=== PATIENT | male | born 1970 | race Caucasian/White ===

== ENCOUNTER 2017-03-04 07:11 | Outpatient (CLI) | payer OTHER | END 2017-03-04 07:12 | disposition home or self-care (01) | DX: R51 Headache (principal); M43.6 Torticollis ==

== ENCOUNTER 2020-02-04 06:48 | Outpatient (CLI) | payer OTHER | END 2020-02-04 06:49 | disposition EMS.NT | LOC: EMS 06:48 | PROVIDERS: ATTEND Surgery | DX: M54.9 Dorsalgia, unspecified (principal); R20.2 Paresthesia of skin ==

== ENCOUNTER 2020-02-04 07:37 | Emergency (ER) | payer OTHER ==
[2020-02-04] MEDS ORDERED: KETOROLAC 60 MG/2 ML VIAL IM STA (08:21)
[2020-02-04] MEDS ORDERED: CYCLOBENZAPRINE 10 MG TABLET PO STA (08:21)
--- NOTE | 2020-02-04 08:31 | ED Physician Documentation ---
PD HPI BACK PAIN - Stated complaint Stated Complaint: BACK PX - Chief complaint Chief Complaint: Back Pain - History obtained from History obtained from: Patient - History of Present Illness Timing - onset: Today Timing - duration: Hours (2) Timing - details: Abrupt onset Pain level max: 8 Pain level now: 6 Location: Upper Quality: Pain, Spasm, Similar to prior episodes Associated symptoms: No: Fever, Weakness, Numbness, Incontinent of urine, Unable to urinate, Hematuria, Incontinent of stool Improves with: Rest Worsened by: Movement Contributing factors: No: Lifting, Twisting, Trauma, Anticoagulated, Cancer, IVDA, Out of meds - Additional information Additional information: 49-year-old male states he has a long history of back problems. He states that today in the shower he twisted to the left and felt his back seized up. Worse with movement and better with rest. No chest pain. No difficulty breathing. No loss of bowel or bladder control. He states he did have some tingling to the hands. Review of Systems Ten Systems: 10 systems reviewed and negative Constitutional: denies: Fever, Chills Ears: denies: Ear pain Nose: denies: Rhinorrhea / runny nose, Congestion Respiratory: denies: Cough GI: denies: Abdominal Pain, Vomiting, Diarrhea Skin: denies: Rash Musculoskeletal: denies: Neck pain Neurologic: denies: Focal weakness, Numbness, Headache PD PAST MEDICAL HISTORY - Past Medical History Past Medical History: Yes Musculoskeletal: Chronic back pain - Past Surgical History Past Surgical History: No - Present Medications Home Medications: Ambulatory Orders Medication Instructions Recorded Confirmed Cyclobenzaprine [Flexeril] 10 mg PO TID PRN #20 tablet 02/04/20 Hydrocodone/Acetaminophen 1 - 2 each PO Q6H PRN #14 tablet 02/04/20 [Hydrocodon-Acetaminophen 5-325] Ibuprofen [Motrin] 800 mg PO Q8H PRN #30 tablet 02/04/20 - Allergies Allergies/Adverse Reactions: Allergies Allergy/AdvReac Type Severity Reaction Status Date / Time No Known Drug Allergies Allergy Verified 02/04/20 07:49 - Living Situation Living Arrangement: reports: At home - Social History Does the pt have substance abuse?: No - Family History Family history: reports: Non contributory PD ED PE NORMAL - Vitals Vital signs reviewed: Yes - General General: Alert and oriented X 3, No acute distress, Well developed/nourished - HEENT HEENT: Atraumatic, Moist mucous membranes - Neck Neck: Supple, no meningeal sign, No bony TTP - Cardiac Cardiac: RRR, Strong equal pulses - Respiratory Respiratory: No respiratory distress, Clear bilaterally - Abdomen Abdomen: Soft, Non tender, Non distended - Back Back: Other (Tender to palpation midline approximately T5-6 Paraspinal spasm present bilaterally near the same area. Pulses are equal bilaterally.) - Derm Derm: Warm and dry - Extremities Extremities: Other (Normal bilateral lower extremity patellar and ankle jerk reflexes. Normal great toe extension bilaterally. no saddle anesthesia) - Neuro Neuro: Alert and oriented X 3, No motor deficit, No sensory deficit - Psych Psych: Normal mood, Normal affect Results - Vitals Vitals: Vital Signs - 24 hr 02/04/20 02/04/20 07:46 09:07 Temperature 36.8 C 36.6 C Heart Rate 65 68 Respiratory 16 16 Rate Blood Pressure 118/98 H 122/74 O2 Saturation 100 100 Oxygen O2 Source Room air - Rads (name of study) Thoracic spine x-ray Radiology: Prelim report reviewed, EMP read contemporaneously, See rad report (normal) PD MEDICAL DECISION MAKING - ED course Complexity details: reviewed results, re-evaluated patient, considered differential (No cauda equina, no spinal epidural abscess, no fracture, no aortic dissection or evidence of aneursym rupture), d/w patient ED course: No acute abnormalities on x-ray. Feels better after Toradol and Flexeril. Will prescribe medication for home. No evidence of cauda equina, epidural abscess, fracture. Does not use IV drugs. No fever. Patient counseled regarding signs and symptoms for which I believe and urgent re-evaluation would be necessary. Patient with good understanding of and agreement to plan and is comfortable going home at this time This document was made in part using voice recognition software. While efforts are made to proofread this document, sound alike and grammatical errors may occur. Departure - Departure Disposition: 01 Home, Self Care Clinical Impression: Back spasm Condition: Good Instructions: ED Spasm Back No Trauma Follow-Up: MARCY KOHLER [Primary Care Provider] - Within 1 week Prescriptions: Cyclobenzaprine [Flexeril] 10 mg PO TID PRN #20 tablet PRN Reason: Spasms Hydrocodone/Acetaminophen [Hydrocodon-Acetaminophen 5-325] 1 - 2 each PO Q6H PRN #14 tablet PRN Reason: pain Ibuprofen [Motrin] 800 mg PO Q8H PRN #30 tablet PRN Reason: PAIN &/OR FEVER Comments: Use the medications as prescribed. Continue to gently stretch your back at home. Return if you worsen. Do not drink alcohol or drive while on narcotic pain medicine. Note that many narcotic pain relievers also contain tylenol/acetaminophen. Please ensure that your total dose of acetaminophen from all sources does not exceed 3 grams (3000mg) per day. You may constipated on this medication, take a stool softener such as "Colace" twice a day while you are on it. Also recommend a keoq-ufn-feuosby laxative such as senna or MiraLAX any day that you do not have a bowel movement. If you received narcotic pain medication in the emergency department, do not drive or operate machinery for the next 24 hours. Discharge Date/Time: 02/04/20 09:08
--- NOTE | 2020-02-04 08:55 | XRAY Report ---
Reason: upper back pain, TTP approx T5 Procedure Date: 02/04/2020 Accession Number: [id number] / [id number] Procedure: XR - Thoracic Spine 2 View CPT Code: Final Report FULL RESULT: EXAM: THORACIC SPINE RADIOGRAPHY EXAM DATE: 02/04/2020 08:34 AM. CLINICAL HISTORY: Upper back pain, TTP approx T5. COMPARISON: None. TECHNIQUE: 2 views. FINDINGS: Alignment: Normal. No spondylolisthesis or scoliosis. Bones: No fractures or bone lesions. Disks: Normal. Disk heights are maintained. Soft Tissues: Normal. The visualized lungs and cardiomediastinal silhouette are normal. IMPRESSION: Normal thoracic spine radiography. [facility]
[2020-02-04 09:08] VITALS: BP 122/74
== END 2020-02-04 09:08 | disposition home or self-care (01) ==
LOC: ED 07:37
DX: M62.830 Muscle spasm of back (principal)
CPT/HCPCS: 72070; 96372; 99283; 99284; A9270